=== PATIENT | female | born 1970 | race Hispanic/Latino ===

== ENCOUNTER 2018-05-03 23:27 | Emergency (ER) | payer SELFPAY ==
[2018-05-03] MEDS ORDERED: Ibuprofen 200 MG TAB ONE (23:53)
== END 2018-05-03 23:58 | disposition home or self-care (01) ==
LOC: BURERS 23:27
DX: S13.4XXA Sprain of ligaments of cervical spine, initial encounter (principal); I10 Essential (primary) hypertension; V89.2XXA Person injured in unspecified motor-vehicle accident, traffic, initial encounter
CPT/HCPCS: 99284